=== PATIENT | male | born 1980 | race Caucasian/White ===

== ENCOUNTER → 2019-05-09 10:51 | Outpatient (CLI) | payer OTHER, SELFPAY ==
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
== END ==
PROVIDERS: Visit Provider Nurse Practitioner
DX: M54.5 Low back pain (principal)
CPT/HCPCS: 72110; 72220

== ENCOUNTER 2024-08-17 18:19 | Emergency (ER) | payer SELFPAY ==
[2024-08-17 18:43] VITALS: BP 142/92; PULSE 95; RESP 16; TEMP 37.2; O2SAT 98; BMI 39.2
[2024-08-17 20:45] VITALS: BP 153/78; PULSE 85; RESP 17; TEMP 36.9; O2SAT 97
[2024-08-17] MEDS: ACETAMINOPHEN 325 MG TABLET 975 MG PO (21:00)
[2024-08-17] MEDS: IBUPROFEN 400 MG TABLET PO (21:01)
== END 2024-08-18 00:50 | disposition left against medical advice (07) ==
PROVIDERS: Emergency Provider Emergency Medicine
DX: L05.91 Pilonidal cyst without abscess (principal); M54.50 Low back pain, unspecified
CPT/HCPCS: 99283